=== PATIENT | female | born 1965 | race Caucasian/White ===

== ENCOUNTER 2017-10-09 13:36 | Emergency (ER) | payer OTHER ==
[~2017-10-09] VITALS: Ht 162.6 cm; Wt 54.4 kg
[2017-10-09 13:49] VITALS: Ht 162.6 cm; Wt 54.4 kg
[2017-10-09 14:32] LABS: BASOPHIL % 0.5 % (0-2); PLATELET COUNT 268 x10^3mcL (130-400); RED CELL DISTRIBUTION WIDTH 13.4 % (11.5-14.5)
[2017-10-09 14:33] LABS: CALCIUM 8.6 mg/dL (8.5-10.1); CARBON DIOXIDE 26.9 mmol/L (21-32); CHLORIDE SERUM 106 mmol/L (98-107); CREATININE SERUM 0.7 mg/dL (0.6-1.0); GFR1 > 60 mL/min; GLUCOSE SERUM 100 mg/dL (74-106); POTASSIUM SERUM 3.3 mmol/L (3.5-5.1); SODIUM SERUM 139 mmol/L (136-145)
[2017-10-09 15:26] VITALS: BP 112/59
== END 2017-10-09 15:39 | disposition home or self-care (01) ==
LOC: EDBD 13:36 → ED 13:36
PROVIDERS: Emergency Medicine
DX: E87.6 Hypokalemia (principal); M54.5 Low back pain; R55 Syncope and collapse
CPT/HCPCS: 72072; J1885; J2405; J3010; J7030